=== PATIENT | female | born 1980 | race Caucasian/White ===

== ENCOUNTER 2024-05-12 09:43 | Emergency (ER) | payer OTHER ==
[2024-05-12 09:54] VITALS: TEMP 99.1; O2SAT 99
--- NOTE | 2024-05-12 09:56 | ERPHSYRPT ---
- History of Present Illness Time Seen by Provider: 05/12/24 09:48 Source: patient, family Exam Limitations: no limitations Physician History: pt was dancing and felt pop in left hip and noted swelling and pain there persisting today. Did not fall or hit anything. No Hx blood thinners or hemophilia. Tender and swollen left hip without echymosis visible yet. Abd soft nontender without mass or peritoneal signs. tender ROM left hip. able to walk with mild pain. N/V intact distally. family is present in ER as independent confirming source for Hx. Discussed risks/benefits of testing/Tx with pt and family including pain meds, CT , CBC and ESR and they wish to proceed with testing ( she has had tubal ligation and declines preg test) but declines pain meds at this time and they have the capacity to make these choices. results discussed. Method of Injury: sports injury, twisted Occurred: yesterday Quality: constant, aching, sharpness, throbbing Severity of Pain-Max: moderate Severity of Pain-Current: moderate Lower Extremities Pain: hip: left Modifying Factors: Improves With: immobilization, movement, rest Associated Symptoms: snapping sensation, popping sensation Allergies/Adverse Reactions: No Known Drug Allergies Allergy (Unverified 05/12/24 10:01) Home Medications: Phentermine HCl [Adipex-P] 37.5 mg PO DAILY 05/12/24 [History] Spironolactone 25 mg [Aldactone 25 MG] 25 mg PO DAILY 05/12/24 [History] - Review of Systems Constitutional: No Fever, No Chills Eyes: No Symptoms Ears, Nose, & Throat: No Symptoms Respiratory: No Cough, No Dyspnea Cardiac: No Chest Pain, No Edema, No Syncope Abdominal/Gastrointestinal: No Abdominal Pain, No Nausea, No Vomiting, No Diarrhea Genitourinary Symptoms: No Dysuria Musculoskeletal: Injury, Joint Pain, Joint Swelling, No Back Pain, No Neck Pain Skin: No Symptoms, No Rash Neurological: No Symptoms, No Dizziness, No Focal Weakness, No Sensory Changes Psychological: No Symptoms Endocrine: No Symptoms Hematologic/Lymphatic: No Symptoms Immunological/Allergic: No Symptoms All Other Systems: Reviewed and Negative - Past Medical History Pertinent Past Medical History: No - Nursing Vital Signs Nursing Vital Signs: Initial Vital Signs Temperature 99.1 F 05/12/24 09:53 Pulse Rate 86 05/12/24 09:53 Respiratory Rate 16 05/12/24 09:53 Blood Pressure 124/85 05/12/24 09:53 O2 Sat by Pulse Oximetry 99 05/12/24 09:53 Pain Scale Pain Intensity 4 - Physical Exam General Appearance: no apparent distress, alert Eyes, Ears, Nose, Throat Exam: moist mucous membranes Neck Exam: non-tender, supple Cardiovascular/Respiratory Exam: chest non-tender, normal breath sounds, regular rate/rhythm, no respiratory distress Gastrointestinal/Abdominal Exam: non-tender, guarding Back Exam: normal inspection, No vertebral tenderness Hips Exam: right: non-tender, normal inspection, normal range of motion, no evidence of injury, left: bone tenderness, pain, soft tissue tenderness, swelling Legs Exam: bilateral leg: non-tender, normal inspection, normal range of motion, no evidence of injury Knees Exam: bilateral knee: non-tender, normal inspection, normal range of motion, no evidence of injury Ankle Exam: bilateral ankle: non-tender, normal inspection, normal range of motion, no evidence of injury Foot Exam: bilateral foot: non-tender, normal inspection, normal range of motion, no evidence of injury DTR - Lower Extremities Exam: knee (R): 2+, knee (L): 2+, ankle (R): 2+, ankle (L): 2+ Neuro/Tendon Exam: normal sensation, normal motor functions, normal tendon functions Mental Status Exam: alert, oriented x 3, cooperative Skin Exam: normal color, warm, dry SpO2 Interpretation: normal SpO2: 99 O2 Delivery: Room Air - Course Nursing assessment & vital signs reviewed: Yes - CT Exams Right Lower Extremity CT Interpretation: Tele-radiologist Report, No Fracture, Other (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 ) Ordered Tests: Active Orders 24 hr Category Date Time Status LOWER EXTREMITY WO CONTRAST [CT] Stat Exams 05/12/24 10:22 Completed CBC W DIFF Stat Lab 05/12/24 10:43 Completed ESR [Erythrocyte Sedimentation Rate] Stat Lab 05/12/24 10:43 Completed Lab/Rad Data: Laboratory Result Diagrams 05/12/24 10:43 Laboratory Results 05/12/24 05/12/24 Range/Units 10:43 10:43 WBC 8.4 (3.98-10.04) x10^3/uL RBC 4.50 (3.93-5.22) x10^6/uL Hgb 14.1 (11.2-15.7) g/dL Hct 40.8 (34.1-44.9) % MCV 90.7 (79.4-94.8) fL MCH 31.3 (25.6-32.2) pg MCHC 34.6 (32.2-35.5) g/dL RDW 11.9 (11.7-14.4) % Plt Count 288 (182-369) x10^3/uL MPV 8.6 L (9.4-12.3) fL Gran % 74.5 H (34.0-71.1) % Immature Gran % (Auto) 0.2 (0.001-0.429) % Nucleat RBC Rel Count 0.0 (0.00-0.2) % Eos # (Auto) 0.08 (0.04-0.36) x10^3/uL Immature Gran # (Auto) 0.02 (0.001-0.031) x10^3u/L Absolute Lymphs (auto) 1.52 (1.18-3.74) x10^3/uL Absolute Monos (auto) 0.49 (0.24-0.86) x10^3/uL Absolute Nucleated RBC 0.00 (0.00-0.012) x10^3u/L Lymphocytes % 18.1 L (19.3-51.7) % Monocytes % 5.8 (4.7-12.5) % Eosinophils % 1.0 (0.7-5.8) % Basophils % 0.4 (0.1-1.2) % Absolute Granulocytes 6.24 H (1.56-6.13) x10^3/uL Basophils # 0.03 (0.01-0.08) x10^3/uL ESR < 1 (0-20) mm/hr - Progress Progress: improved, re-examined Counseled pt/family regarding: lab results, diagnosis, need for follow-up, rad results, smoking cessation Medical Desision Making - Independent Historian Additional History obtained from: Family - Discussion of managment Reviewed:: Test results, Need for additional workup Agreed on:: Treatment plan, need for follow-up - Diagnostic Testing Diagnostic test were ordered, analyzed, and reviewed by me: Yes Radiological Interpretation: Teleradiologist Report - Risk of complications The pt has a mod risk of morbidity or mortality based on: Need for prescription drug management - Departure Departure Disposition: Home Clinical Impression: Injury of left hip Condition: Good Critical Care Time: No Referrals: KESHAV SILVA MD [CONSULTING PHYSICIAN] - Follow up/PCP as directed Instructions: Contusion (DC), Transient synovitis Additional Instructions: We did not find the exact cause for your hip pain but suspect a capsule tear or ligament injury not seen on CT, so it is important to followup with your Dr. and orthopedic for further testing such as MRI to see these things if present. We are providing some other instruction for transient synovitis which sometimes happens but a tear is suspected. return meantime if not improving , increased pain, dizziness, numbness or other concerns or symptoms meantime. Ice may help today then heat tomorrow.
[2024-05-12 10:48] LABS: Absolute Neutrophil Ct (ANC) 6.24 x10^3/uL (1.56-6.13); BASOPHIL % 0.4 % (0.1-1.2); Basophil (Absolute #) 0.03 x10^3/uL (0.01-0.08); Eosinophil (Absolute #) 0.08 x10^3/uL (0.04-0.36); Hematocrit 40.8 % (34.1-44.9); Hemoglobin 14.1 g/dL (11.2-15.7); IMMATURE GRAN # 0.02 x10^3u/L (0.001-0.031); IMMATURE GRAN % 0.2 % (0.001-0.429); Lymphocyte (Absolute #) 1.52 x10^3/uL (1.18-3.74); Lymphocytes % 18.1 % (19.3-51.7); Mean Cell Volume 90.7 fL (79.4-94.8); Mean Corpuscular Hemoglobin 31.3 pg (25.6-32.2); Mean Corpuscular Hgb Concent. 34.6 g/dL (32.2-35.5); Mean Platelet Volume 8.6 fL (9.4-12.3); Monocyte (Absolute #) 0.49 x10^3/uL (0.24-0.86); Monocytes % 5.8 % (4.7-12.5); Neutrophil % 74.5 % (34.0-71.1); Platelet Count 288 x10^3/uL (182-369); Red Cell Distribution Width 11.9 % (11.7-14.4); White Blood Count 8.4 x10^3/uL (3.98-10.04)
[2024-05-12 10:50] VITALS: RESP 18
--- NOTE | 2024-05-12 11:11 | XRAY ---
CLINICAL HISTORY: left hip pain COMPARISON: None. TECHNIQUE: Multiple, contiguous, non-enhanced CT scan of the left hip joint in axial plane with multiplanar reconstructions. One of the following dose reduction techniques was utilized for this exam: Automated exposure control, adjustment of the mA and/or kV according to patient size, and use of iterative reconstruction. FINDINGS: Bones: The small right acetabular sclerotic area could be a bone island. Normal alignment of the femoral heads, necks, and acetabula. No fractures, lytic, or other sclerotic lesions. No evidence of avascular necrosis of the femoral heads. Joints: Normal joint spaces of the hip joints bilaterally. No evidence of joint effusions or intra-articular loose bodies. No significant degenerative changes or osteophyte formation. Bilateral sacroiliitis in the form of joint narrowing, small bone hypertrophy, and marginal sclerosis. L3-L4, L4-L5, and L5-S1 bilateral facet joint arthrosis is more evident at L4-L5 in the form of joint narrowing, marginal sclerosis, and bone hypertrophy. Mild osteitis pubis. Muscles and Tendons: Normal appearance of the surrounding muscles and tendons. No evidence of muscle atrophy, tendinopathy, or tears. Soft Tissues: Faint calcific foci were noted in the right superior acetabular labrum. Few pelvic calcific phleboli. Normal appearance of the soft tissues surrounding the hips. No abnormal masses, swelling, or fluid collections. IMPRESSION: 1. Normal CT appearance of both hip joints. 2. Faint calcific foci were noted in the right superior acetabular labrum. 3. The small right acetabular sclerotic area could be a bone island. 4. Bilateral sacroiliitis. 5. L3-L4, L4-L5, and L5-S1 bilateral facet joint arthrosis. 6. Mild osteitis pubis. Electronically Signed by: Jose F Hernandez MD. (05/12/2024 11:06:52 EDT)
[2024-05-12 12:59] VITALS: BP 139/92; PULSE 78
== END 2024-05-12 13:00 | disposition home or self-care (01) ==
LOC: ED 09:43
DX: S79.912A Unspecified injury of left hip, initial encounter (principal); X50.9XXA Other and unspecified overexertion or strenuous movements or postures, initial encounter; Y93.41 Activity, dancing; M25.552 Pain in left hip; Z79.899 Other long term (current) drug therapy
CPT/HCPCS: 36415; 73700; 85025; 85652; 99283

== ENCOUNTER 2024-09-19 12:46 | Emergency (ER) | payer OTHER ==
--- NOTE | 2024-09-19 12:58 | ERPHSYRPT ---
- History of Present Illness Time Seen by Provider: 09/19/24 12:58 Source: patient Exam Limitations: no limitations Physician History: This a 44-year-old white female patient arrives by private vehicle secondary to a tender rash that came on yesterday on the left side of her face, left ear and left side of her neck. The pain was sharp and had a burning component. This morning, there is not much pain present and she said the rash has subsided. However, she is concerned about the possibility of shingles. She is also concerned about a new lesion on the gumline the left lower molar region. She is concerned about her possibly being an infection. Patient has not had a fever. She has no known drug allergies Quality: burning, painful Severity: mild Location: face (Left face left side of neck) Possible Causes: no cause identified Associated Symptoms: rash (Even the patient admission, appears to have resolved) Allergies/Adverse Reactions: No Known Drug Allergies Allergy (Unverified 09/19/24 13:22) Home Medications: Phentermine HCl [Adipex-P] 37.5 mg PO DAILY 05/12/24 [History] Spironolactone 25 mg [Aldactone 25 MG] 25 mg PO DAILY 05/12/24 [History] Hx Influenza Vaccination/Date Given: No Hx Pneumococcal Vaccination/Date Given: No Travel Risk - International Travel Have you traveled outside of the country in past 3 weeks: No - Emerging Infectious Disease Are you exhibiting symptoms associated with any current EIDs: No - Review of Systems Constitutional: No Symptoms Eyes: No Symptoms Ears, Nose, & Throat: No Symptoms Respiratory: No Symptoms Cardiac: No Symptoms Abdominal/Gastrointestinal: No Symptoms Genitourinary Symptoms: No Symptoms Musculoskeletal: No Symptoms Skin: No Symptoms, Rash (Tender skin rash yesterday left side of face and left side of neck) Neurological: No Symptoms Psychological: No Symptoms Endocrine: No Symptoms Hematologic/Lymphatic: No Symptoms Immunological/Allergic: No Symptoms All Other Systems: Reviewed and Negative - Past Medical History Pertinent Past Medical History: No - Past Surgical History Past Surgical History: No - Female History Hx Last Menstrual Period: now - Social History Smoking Status: Current some day smoker Exposure to second hand smoke: Yes Drug Use: none - Social Determinants of Health Will the patient participate in the screening: Declined to provide - Nursing Vital Signs Nursing Vital Signs: Initial Vital Signs Temperature 98.2 F 09/19/24 13:16 Pulse Rate 78 09/19/24 13:16 Respiratory Rate 16 09/19/24 13:16 Blood Pressure 152/84 09/19/24 13:16 O2 Sat by Pulse Oximetry 100 09/19/24 13:16 Pain Scale Pain Intensity 0 - Physical Exam General Appearance: no apparent distress, alert, anxiety Eye Exam: PERRL/EOMI, eyes nml inspection Ears, Nose, Throat Exam: normal ENT inspection, moist mucous membranes Neck Exam: normal inspection, non-tender, supple, full range of motion Respiratory Exam: airway intact, No chest tenderness, No respiratory distress Gastrointestinal/Abdomen Exam: No tenderness Pelvic Exam: not done Rectal Exam: not done Back Exam: normal inspection, normal range of motion, No CVA tenderness, No vertebral tenderness Extremity Exam: normal inspection, normal range of motion, pelvis stable Neurologic Exam: alert, oriented x 3, cooperative, studio engineer II-XII nml as tested, nml cerebellar function, nml station & gait, sensation nml Skin Exam: other (No redness and no visible rash) Lymphatic Exam: No adenopathy SpO2 Interpretation: normal O2 Delivery: Room Air - Course Nursing assessment & vital signs reviewed: Yes - Progress Progress: unchanged Progress Note: 09/19/24 14:16 My medical decision making and the assignment of low complexity to this patie nt's medical issue today is based on review of the patient's past medical history, review of the patient's medication list, review the patient's drug allergy list, history present illness and physical findings on examination. The workup does not require any radiographic studies or laboratory studies. Differential diagnosis includes but is not limited to dermatitis, dental infection, preshingles lesions 09/19/24 14:18 I will send a prescription of amoxicillin 500 mg 3 times a day for 5 days in the event the patient has increasing concerned about dental infection. For the same reason, I will go ahead and send a prescription of Zovirax to her pharmacy in the event she has shingles blisters evident. She was told not to take the medicine unless the blisters become evident. This is being done as a convenience for the patient since her physician/primary care provider will not be in the office until next week. Counseled pt/family regarding: diagnosis, need for follow-up Medical Desision Making - Diagnostic Testing Diagnostic test were ordered, analyzed, and reviewed by me: No - Risk of complications The pt has a mod risk of morbidity or mortality based on: Need for prescription drug management - Departure Departure Disposition: Home Clinical Impression: Skin rash, Pain, dental Condition: Stable Critical Care Time: No Referrals: DOCTOR,NO FAMILY [Primary Care Provider] - Follow up/PCP as directed Additional Instructions: Only take the shingles medication if you see blisters. If you are concerned about the presence of dental infection, go ahead and take your amoxicillin as prescribed. Call your primary care provider on 09/23/2024 to make arrangements for follow-up appointment Prescriptions: Acyclovir 800 mg [Acyclovir] 800 mg PO 5XD 7 Days #35 tablet Amoxicillin 500 mg Cap [Amoxil 500 mg] 500 mg PO TID #15 cap
[2024-09-19 13:28] VITALS: BP 152/84; RESP 16; TEMP 98.2
[2024-09-19 14:49] VITALS: PULSE 71; O2SAT 97
== END 2024-09-19 14:49 | disposition home or self-care (01) ==
LOC: ED 12:46
DX: R21 Rash and other nonspecific skin eruption (principal); K08.89 Other specified disorders of teeth and supporting structures
CPT/HCPCS: 99281